=== PATIENT | female | born 1950 | race Caucasian/White ===

== ENCOUNTER → 2017-11-13 10:42 | Outpatient (CLI) | payer MEDICARE, SELFPAY ==
[2017-11-13 12:36] LABS: Absolute Lymphocyte Count 1.68 X10^3/ul (0.83-4.51); Absolute Neutrophil Count 2.9 X10^3/uL (2.0-7.7); Basophil# 0.09 X10^3/uL; Basophil% 1.7 % (0-1); Eosinophil# 0.11 X10^3/uL; Eosinophils% 2.1 % (0-5); Hematocrit 41.3 % (37-47); Hemoglobin 13.3 g/dl (12.0-15.0); Lymphocyte # 1.68 X10^3/ul (4.0); Lymphocyte % 31.5 % (19-41); Mean Corp Hgb Conc 32.2 g/gl (32-36); Mean Corpuscular Hgb 31.8 pg (27.0-32.0); Mean Corpuscular Volume 98.8 fL (81-99); Mean Platelet Vol. 11.1 fl (6.2-12.0); Monocyte# 0.59 X10^3/uL; Neutrophil # 2.87 X10^3/uL (2.7-7.7); Neutrophil % 53.7 % (47-70); Platelet Count 245 K/mm3 (150-450); RBC Distribution Width CV 12.9 % (11.6-14.6); RBC Distribution Width SD 46.6 fl (35.1-43.9); Red Blood Count 4.18 M/mm3 (4.2-5.4); White Blood Count 5.3 K/mm3 (4.4-11.0)
[2017-11-13 12:44] LABS: POSITIVE COUNT NO; POSITIVE DIFFERENTIAL NO; POSITIVE MORPHOLOGY NO
[2017-11-13 12:51] LABS: Vitamin D,25 Hydroxy 15.8 ng/mL (29.95-100.01)
[2017-11-13 12:54] LABS: ALB/GLOB Ratio 1.1 RATIO (0.9-2.4); AST(SGOT) 14 U/L (15-37); Alanine Aminotransfer ALT/SGPT 24 U/L (13-56); Albumin, Serum 3.6 g/dL (3.2-5.0); Alkaline Phosphatase 57 U/L (45-117); Anion Gap 8 (5-15); BUN 18 mg/dL (7-18); BUN/Creat Ratio 23.1 RATIO (10-20); Calcium,Total 8.4 mg/dL (8.5-10.1); Chloride 108 mmol/L (98-107); Creatinine, Serum 0.78 mg/dL (0.55-1.02); EST Glomerular Filtration Rate 79 mL/min (>60); Est Glom Filt Rate - Afr Amer 96 mL/min (>60); Globulin 3.3 g/dL (2.2-4.2); Glucose 78 mg/dL (74-106); Potassium 4.6 mmol/L (3.5-5.1); Protein, Total 6.9 g/dL (6.4-8.2); Sodium Level 143 mmol/L (136-145); Thyroid Stim Hormone (TSH) 2.72 uIU/mL (0.358-3.74)
[2017-11-15 09:32] LABS: Hep C Antibodies <0.1 s/co ratio (0.0-0.9)
== END ==
PROVIDERS: Family Provider Family Medicine Geriatric Medicine; PCP Family Medicine Geriatric Medicine; Visit Provider Family Medicine Geriatric Medicine
DX: R53.83 Other fatigue (principal); E55.9 Vitamin D deficiency, unspecified; Z13.89 Encounter for screening for other disorder
CPT/HCPCS: 36415; 80053; 82306; 84443; 85025; 86803

== ENCOUNTER → 2017-12-24 15:30 | Outpatient (CLI) | payer MEDICARE, SELFPAY ==
--- NOTE | 2017-12-24 15:33 | BD_ITS ---
STUDY: DUAL ENERGY X-RAY ABSORPTIOMETRY / DXA REASON FOR EXAM: Female, 67 years old. The patient is postmenopausal. Loss of height. TECHNIQUE: Bone Mineral Density (BMD) measurements of lumbar spine and bilateral hips were obtained. COMPARISON: None. FINDINGS: Lumbar Spine (L1-L4): g/cm2 (0.668) / T-score (-4.3) / Z-score (-2.7) Findings are suggestive of osteoporosis with a high fracture risk. Left Femur Total: g/cm2 (0.641) / T-score (-2.9) / Z-score (-1.7) Left Femoral Neck: g/cm2 (0.659) / T-score (-2.7) / Z-score (-1.3) Right Femur Total: g/cm2 (0.621) / T-score (-3.1) / Z-score (-1.9) Right Femoral Neck: g/cm2 (0.650) / T-score (-2.8) / Z-score (-1.3) BD/Dexa Bone Density Study IMPRESSION: The patient is considered osteoporotic as outlined below according to World Jim Organization (WHO) criteria with a high fracture risk. Reference Information: The T-score is the number of standard deviations above or below the standard which is normal for young adults at their peak bone mineral density. The World Health Organization (WHO) interprets the T-scores as follows: Above -1 Normal bone density Between -1 and -2.5 Osteopenia Equal to / or below -2.5 Osteoporosis As a practical clinical guideline, osteopenia may be graded as follows: Mild -1 through -1.5 Moderate -1.6 through -2.0 Severe -2.1 through -2.4 The Z-score is the number of standard deviations above or below age-matched controls. A Z-score of less than -1.5 would be considered abnormal. References: 1. NIH Osteoporosis and Related Bone Diseases http://www.osteo.org 2. International Society for Clinical Densitometry http://www.iscd.org 3. National Osteoporosis Foundation http://www.nof.org Electronically Signed: Alejandro Christensen MD at 15:29 EST Tel [phone], Service support ,
--- NOTE | 2017-12-24 15:33 | BI_ITS ---
MAMMOGRAPHY - BILATERAL SCREENING REASON FOR EXAM: Female, 67 years old. Routine annual screening examination. PERTINENT HISTORY: Aunt with breast cancer. History of prior bilateral breast reduction. TECHNIQUE: Digital bilateral breast angelina (3D mammographic acquisition) in the CC and MLO projections. 2-D mediolateral oblique (MLO) and craniocaudad (CC) views of both breasts were obtained. CAD: Full Field Digital Mammography with Computer Added Detection was performed. COMPARISON: Comparison is made with prior examination dated October 22, 2013. FINDINGS: Breast Composition: There are scattered areas of fibroglandular density. There are no dominant masses or suspicious calcifications. No other significant abnormalities are identified. There has been no significant change since the prior study. BI/SCREENING MAMM (CAD), BILAT IMPRESSION: Stable bilateral screening mammogram. Yearly follow-up mammogram recommended. (A) ASSESSMENT CATEGORY: BIRADS Category 1: Negative. A letter regarding these results will be sent to the patient by the facility within 30 days. Approximately 10% of breast cancers are not detected by mammography. A normal mammogram should not delay biopsy of a clinically suspicious abnormality. [id number] Electronically Signed: Alejandro Christensen MD at 8:02 EST Tel [phone], Service support ,
== END ==
PROVIDERS: Family Provider Family Medicine Geriatric Medicine; PCP Family Medicine Geriatric Medicine; Referring Provider Family Medicine Geriatric Medicine; Visit Provider Family Medicine Geriatric Medicine
DX: Z12.31 Encounter for screening mammogram for malignant neoplasm of breast (principal); M81.0 Age-related osteoporosis without current pathological fracture; Z78.0 Asymptomatic menopausal state
CPT/HCPCS: 77063; 77067; 77080

== ENCOUNTER → 2018-11-17 09:12 | Outpatient (CLI) | payer MEDICARE, SELFPAY ==
[2018-11-17 12:03] LABS: Absolute Lymphocyte Count 2.38 X10^3/uL (0.83-4.51); Absolute Neutrophil Count 3.7 X10^3/uL (2.0-7.7); Basophil# 0.08 X10^3/uL; Basophil% 1.2 % (0-1); Eosinophil# 0.07 X10^3/uL; Hematocrit 43.1 % (37-47); Hemoglobin 14.1 g/dL (12.0-15.0); Lymphocyte # 2.38 X10^3/ul (4.0); Lymphocyte % 35.5 % (19-41); Mean Corp Hgb Conc 32.7 g/dL (32-36); Mean Corpuscular Hgb 32.6 pg (27.0-32.0); Mean Corpuscular Volume 99.5 fL (81-99); Mean Platelet Vol. 12.2 fl (6.2-12.0); Monocyte# 0.51 X10^3/uL; Monocyte% 7.6 % (0-10); NRBC Flagged by Analyzer 0 % (0-5); Neutrophil # 3.65 X10^3/uL (2.7-7.7); Neutrophil % 54.4 % (47-70); Platelet Count 234 K/mm3 (150-450); RBC Distribution Width CV 12.6 % (11.6-14.6); RBC Distribution Width SD 46.5 fl (35.1-43.9); Red Blood Count 4.33 M/mm3 (4.2-5.4); White Blood Count 6.7 K/mm3 (4.4-11.0)
[2018-11-17 12:14] LABS: ALB/GLOB Ratio 1.2 RATIO (0.9-2.4); AST(SGOT) 19 U/L (15-37); Alanine Aminotransfer ALT/SGPT 25 U/L (13-56); Albumin, Serum 3.9 g/dL (3.2-5.0); Alkaline Phosphatase 65 U/L (45-117); Anion Gap 5 (5-15); BUN 21 mg/dL (7-18); BUN/Creat Ratio 20.6 RATIO (10-20); Calcium,Total 8.8 mg/dL (8.5-10.1); Chloride 106 mmol/L (98-107); Creatinine, Serum 1.02 mg/dL (0.55-1.02); EST Glomerular Filtration Rate 58 mL/min (>60); Est Glom Filt Rate - Afr Amer 70 mL/min (>60); Globulin 3.2 g/dL (2.2-4.2); Glucose 99 mg/dL (74-106); Potassium 4.2 mmol/L (3.5-5.1); Protein, Total 7.1 g/dL (6.4-8.2); Sodium Level 141 mmol/L (136-145); Thyroid Stim Hormone (TSH) 4.84 uIU/mL (0.358-3.74)
[2018-11-17 12:15] LABS: Vitamin D,25 Hydroxy 26.4 ng/mL (29.95-100.01)
== END ==
PROVIDERS: Family Provider Family Medicine Geriatric Medicine; PCP Family Medicine Geriatric Medicine; Visit Provider Family Medicine Geriatric Medicine
DX: E55.9 Vitamin D deficiency, unspecified (principal); R53.83 Other fatigue
CPT/HCPCS: 36415; 80053; 82306; 84443; 85025

== ENCOUNTER 2018-12-12 07:24 | Day surgery (SDC) | payer MEDICARE, SELFPAY ==
[2018-12-12] VITALS (8 sets, daily range): BP systolic 91–120; BP diastolic 59–69; PULSE 43–59; RESP 16; TEMP 36.3–37.2; O2SAT 98–100; BMI 22.0
[2018-12-12] MEDS: Lactated Ringers 1,000 ML 100 ML IV (08:11)
--- NOTE | 2018-12-12 08:41 | PCM.HP.STD ---
Problem List (1) Screening for intestinal cancer Status: Acute History of Present Illness Date of Admission: 12/12/18 The patient is a 68 year old F who presents for screening colonoscopy today. She presents via our open access program. She has never had a previous colonoscopy. She enjoys good health. She has no specific complaints today. Past Medical History Allergies No Known Allergies Allergy (Verified 12/10/18 13:53) Home Medications: Ambulatory Orders Medication Instructions Recorded Eszopiclone [Lunesta] 3 mg PO QHS 07/22/14 Oxycodone HCl/Acetaminophen 1 - 2 tablet PO Q4H PRN PRN #30 07/23/14 [Percocet 5/325] tablet Levothyroxine [Synthroid] 25 mcg PO DAILY 12/10/18 Smoking Status: Current every day smoker Review of Systems HEENT: Denies: Difficulty Swallowing Cardiovascular: Denies: Chest Pain Respiratory: Denies: Cough Gastrointestinal: Denies: Abdominal Pain, Hematochezia Endocrine: Denies: Change in Body Habitus VTE Information - Inpt Only VTE Present on Admission: No Patient Problems: Active and Suspected Problems Screening for intestinal cancer (Acute) - Physical Exam Vitals/I&O's: Vital Signs Temp Pulse Resp BP Pulse Ox 98.9 F 59 L 16 116/69 100 12/12/18 07:47 12/12/18 07:47 12/12/18 07:47 12/12/18 07:47 12/12/18 07:47 Oxygen Delivery Method Room Air Weight: 138 lb 7.205 oz Body Mass Index (BMI) 22.0 General: Alert, Oriented x3, Cooperative, No apparent distress Oral: Moist Mucosa Neck: Supple Lungs: Clear to auscultation, Normal air movement Cardiovascular: Regular rate, Regular Rhythm Abdomen: Bowel Sounds Present, Soft, Non Tender Extremities: No Calf Tenderness Current Medications Lactated Ringer's () 1,000 mls @ 100 mls/hr IV .Q10H RADHA Last Admin: 12/12/18 08:11 Dose: 100 mls/hr Documented by: Assessment/Plan All Active Problems Screening for intestinal cancer (Acute) I plan to proceed with a screening colonoscopy with possible biopsy or polypectomy is indicated. She is aware of the technique, benefits, risks, alternatives. She has had an opportunity to ask and have questions answered. As noted she presents via our open access program today. Gray Arevalo M.D., F.A.C.S.
--- NOTE | 2018-12-12 09:20 | OP.ENDO_ITS ---
12/12/2018 Franklin Rudd MD [address] [place] [address] Re : Colonoscopy procedure for Radha Aj Dear Dr. Rudd This procedure was performed on Wednesday, December 12, 2018. My impressions and recommendations are as follows: Impressions : - Preparation of the colon was fair. - Hemorrhoids found on perianal exam. - Diverticulosis in the sigmoid colon and in the descending colon. - Tortuous colon. - The examination was otherwise normal. - No specimens collected. Recommendations : - Discharge patient to home. - Resume previous diet. - Continue present medications. - Repeat colonoscopy in 10 years for screening purposes. Liguid stool throughout the colon. 800cc aspirated. Some areas of colon could not be completely visualized b/o solid/particle component. What was visualized was normal except for diveticular disease. My findings are described in the full procedure note, which is enclosed. If I can be of further assistance, please feel free to contact me at Doctor phone number(s): Work: . Sincerely, Gray Arevalo MD 12/12/2018 9:20:17 AM This report has been signed electronically.
== END 2018-12-12 10:21 | disposition home or self-care (01) ==
LOC: EN 07:24 → AC 07:25
PROVIDERS: Family Provider Family Medicine Geriatric Medicine; PCP Family Medicine Geriatric Medicine; Referring Provider Family Medicine Geriatric Medicine; Visit Provider Surgery
PROC: 0DJD8ZZ Inspection of Lower Intestinal Tract, Via Natural or Artificial Opening Endoscopic (ICD-10-PCS; CPT 45378; principal; 2018-12-12 08:25)
DX: Z12.11 Encounter for screening for malignant neoplasm of colon (principal); K57.30 Diverticulosis of large intestine without perforation or abscess without bleeding; K64.9 Unspecified hemorrhoids; F17.200 Nicotine dependence, unspecified, uncomplicated; Z79.899 Other long term (current) drug therapy
CPT/HCPCS: G0121; 99152; 99153; J7120

== ENCOUNTER → 2018-12-29 09:26 | Outpatient (CLI) | payer MEDICARE, SELFPAY ==
[2018-12-12 07:47] VITALS: BMI 22.0
[2018-12-29 10:30] LABS: Thyroid Stim Hormone (TSH) 3.37 uIU/mL (0.358-3.74)
== END ==
LOC: LAB.FUTURE 09:31 → LAB 09:32
PROVIDERS: Family Provider Family Medicine Geriatric Medicine; PCP Family Medicine Geriatric Medicine; Referring Provider Family Medicine Geriatric Medicine; Visit Provider Family Medicine Geriatric Medicine
DX: E03.9 Hypothyroidism, unspecified (principal)
CPT/HCPCS: 36415; 84443

== ENCOUNTER → 2019-11-19 09:01 | Outpatient (CLI) | payer MEDICARE, SELFPAY ==
[2018-12-12 07:47] VITALS: BMI 22.0
[2019-11-19 12:49] LABS: Absolute Lymphocyte Count 2.56 X10^3/uL (0.83-4.51); Absolute Neutrophil Count 3.9 X10^3/uL (2.0-7.7); Basophil# 0.08 X10^3/uL; Basophil% 1.1 % (0-1); Eosinophil# 0.06 X10^3/uL; Eosinophils% 0.9 % (0-5); Hematocrit 41.6 % (37-47); Hemoglobin 13.5 g/dL (12.0-15.0); Lymphocyte # 2.56 X10^3/ul (4.0); Lymphocyte % 36.4 % (19-41); Mean Corp Hgb Conc 32.5 g/dL (32-36); Mean Corpuscular Volume 101.7 fL (81-99); Mean Platelet Vol. 11.9 fl (6.2-12.0); Monocyte# 0.41 X10^3/uL; Monocyte% 5.8 % (0-10); NRBC Flagged by Analyzer 0 % (0-5); Neutrophil # 3.91 X10^3/uL (2.7-7.7); Neutrophil % 55.5 % (47-70); Platelet Count 237 K/mm3 (150-450); RBC Distribution Width CV 12.4 % (11.6-14.6); Red Blood Count 4.09 M/mm3 (4.2-5.4)
[2019-11-19 13:03] LABS: Vitamin D,25 Hydroxy 62.4 ng/mL
[2019-11-19 13:18] LABS: ALB/GLOB Ratio 1.1 RATIO (0.9-2.4); AST(SGOT) 28 U/L (15-37); Alanine Aminotransfer ALT/SGPT 41 U/L (13-56); Albumin, Serum 3.7 g/dL (3.2-5.0); Alkaline Phosphatase 58 U/L (45-117); Anion Gap 4 (5-15); BUN 24 mg/dL (7-18); BUN/Creat Ratio 22.6 RATIO (10-20); Calcium,Total 8.9 mg/dL (8.5-10.1); Chloride 106 mmol/L (98-107); Creatinine, Serum 1.06 mg/dL (0.55-1.02); EST Glomerular Filtration Rate 55 mL/min (>60); Est Glom Filt Rate - Afr Amer 67 mL/min (>60); Globulin 3.3 g/dL (2.2-4.2); Glucose 95 mg/dL (74-106); Potassium 4.2 mmol/L (3.5-5.1); Sodium Level 140 mmol/L (136-145); Thyroid Stim Hormone (TSH) 4.11 uIU/mL (0.358-3.74)
== END ==
PROVIDERS: PCP Family Medicine Geriatric Medicine; Visit Provider Family Medicine Geriatric Medicine
DX: E55.9 Vitamin D deficiency, unspecified (principal); R53.83 Other fatigue
CPT/HCPCS: 36415; 80053; 82306; 84443; 85025

== ENCOUNTER → 2020-03-04 11:15 | Outpatient (CLI) | payer MEDICARE, SELFPAY ==
[2018-12-12 07:47] VITALS: BMI 22.0
[2020-03-04 12:33] LABS: Thyroid Stim Hormone (TSH) 1.46 uIU/mL (0.358-3.74)
== END ==
PROVIDERS: PCP Family Medicine Geriatric Medicine; Referring Provider Family Medicine Geriatric Medicine; Visit Provider Family Medicine Geriatric Medicine
DX: E03.9 Hypothyroidism, unspecified (principal)
CPT/HCPCS: 36415; 84443

== ENCOUNTER → 2020-11-21 10:20 | Outpatient (CLI) | payer MEDICARE, SELFPAY ==
[2020-11-21 12:07] LABS: Absolute Lymphocyte Count 1.81 X10^3/uL (0.83-4.51); Absolute Neutrophil Count 2.2 X10^3/uL (2.0-7.7); Basophil% 2.1 % (0-1); Eosinophil# 0.08 X10^3/uL; Eosinophils% 1.7 % (0-5); Hematocrit 42.4 % (37-47); Lymphocyte # 1.81 X10^3/ul (0.83-4.51); Lymphocyte % 38.5 % (19-41); Mean Corpuscular Hgb 32.6 pg (27.0-32.0); Mean Corpuscular Volume 98.8 fL (81-99); Mean Platelet Vol. 11.6 fl (6.2-12.0); Monocyte# 0.43 X10^3/uL; Monocyte% 9.1 % (0-10); NRBC Flagged by Analyzer 0 % (0-5); Neutrophil # 2.24 X10^3/uL (2.7-7.7); Neutrophil % 47.7 % (47-70); Platelet Count 247 K/mm3 (150-450); RBC Distribution Width CV 12.3 % (11.6-14.6); RBC Distribution Width SD 45.1 fl (35.1-43.9); Red Blood Count 4.29 M/mm3 (4.2-5.4); White Blood Count 4.7 K/mm3 (4.4-11.0)
[2020-11-21 12:28] LABS: ALB/GLOB Ratio 0.9 RATIO (0.9-2.4); AST(SGOT) 19 U/L (15-37); Alanine Aminotransfer ALT/SGPT 26 U/L (13-56); Albumin, Serum 3.4 g/dL (3.2-5.0); Alkaline Phosphatase 67 U/L (45-117); Anion Gap 6 (5-15); BUN 21 mg/dL (7-18); Calcium,Total 8.4 mg/dL (8.5-10.1); Chloride 107 mmol/L (98-107); Creatinine, Serum 0.84 mg/dL (0.55-1.02); EST Glomerular Filtration Rate 72 mL/min (>60); Est Glom Filt Rate - Afr Amer 87 mL/min (>60); Globulin 3.6 g/dL (2.2-4.2); Glucose 96 mg/dL (74-106); Potassium 4.4 mmol/L (3.5-5.1); Sodium Level 141 mmol/L (136-145); Thyroid Stim Hormone (TSH) 1.83 uIU/mL (0.358-3.74)
== END ==
PROVIDERS: PCP Family Medicine Geriatric Medicine; Visit Provider Family Medicine Geriatric Medicine
DX: R53.83 Other fatigue (principal); E55.9 Vitamin D deficiency, unspecified
CPT/HCPCS: 36415; 80053; 82306; 84443; 85025

== ENCOUNTER → 2021-11-27 | Outpatient (CLI) | payer MEDICARE, SELFPAY ==
[2021-11-27 12:25] LABS: Absolute Lymphocyte Count 1.71 X10^3/uL (0.83-4.51); Basophil# 0.09 X10^3/uL; Basophil% 1.7 % (0-1); Eosinophil# 0.11 X10^3/uL; Hematocrit 44.1 % (37-47); Hemoglobin 14.5 g/dL (12.0-15.0); Lymphocyte # 1.71 X10^3/ul (0.83-4.51); Lymphocyte % 31.6 % (19-41); Mean Corp Hgb Conc 32.9 g/dL (32-36); Mean Corpuscular Hgb 31.1 pg (27.0-32.0); Mean Corpuscular Volume 94.6 fL (81-99); Mean Platelet Vol. 11.3 fl (6.2-12.0); Monocyte# 0.53 X10^3/uL; Monocyte% 9.8 % (0-10); NRBC Flagged by Analyzer 0 % (0-5); Neutrophil # 2.95 X10^3/uL (2.7-7.7); Neutrophil % 54.5 % (47-70); Platelet Count 282 K/mm3 (150-450); RBC Distribution Width CV 12.7 % (11.6-14.6); RBC Distribution Width SD 44.2 fl (35.1-43.9); Red Blood Count 4.66 M/mm3 (4.2-5.4); White Blood Count 5.4 K/mm3 (4.4-11.0)
[2021-11-27 12:42] LABS: Vitamin D,25 Hydroxy 42.6 ng/mL
[2021-11-27 12:54] LABS: ALB/GLOB Ratio 0.9 RATIO (0.9-2.4); AST(SGOT) 16 U/L (15-37); Alanine Aminotransfer ALT/SGPT 26 U/L (13-56); Albumin, Serum 3.5 g/dL (3.2-5.0); Alkaline Phosphatase 85 U/L (45-117); Anion Gap 6 (5-15); BUN 21 mg/dL (7-18); BUN/Creat Ratio 22.8 RATIO (10-20); Calcium,Total 8.7 mg/dL (8.5-10.1); Chloride 107 mmol/L (98-107); Creatinine, Serum 0.92 mg/dL (0.55-1.02); EST Glomerular Filtration Rate 64 mL/min (>60); Est Glom Filt Rate - Afr Amer 78 mL/min (>60); Globulin 3.9 g/dL (2.2-4.2); Glucose 103 mg/dL (74-106); Potassium 4.5 mmol/L (3.5-5.1); Protein, Total 7.4 g/dL (6.4-8.2); Sodium Level 140 mmol/L (136-145); Thyroid Stim Hormone (TSH) 1.75 uIU/mL (0.358-3.74)
== END | disposition home or self-care (01) ==
LOC: POLAB3 09:53
PROVIDERS: PCP Family Medicine Geriatric Medicine; Visit Provider Family Medicine Geriatric Medicine
DX: E55.9 Vitamin D deficiency, unspecified (principal); R53.83 Other fatigue
CPT/HCPCS: 36415; 80053; 82306; 84443; 85025

== ENCOUNTER → 2021-12-01 | Outpatient (CLI) | payer MEDICARE, SELFPAY ==
--- NOTE | 2021-12-01 14:20 | PFTCOMP ---
COMPLETE PULMONARY FUNCTION TEST INTERPRETATION Brief HPI: Patient is a 71-year-old female, currently under the care of Dr. Rudd, who presents to [facility] for complete pulmonary function tests secondary to diagnosis of dyspnea. Respiratory therapist reports good effort and reproducible results. Interpretation: Forced expiration spirometry shows a mild large airways obstructive ventilatory defect with an FEV1 of 80% predicted. There is a significant bronchodilator response in FEV1 by strict ATS criteria. Spirograms are of good quality and plateau slowly, indicating slowly emptying areas of the lungs. The respiratory flow volume loop shows decreased expiratory flow rates at all lung volumes consistent with airway obstruction. Lung volumes by body plethysmography show an elevated total lung capacity at 6.47 L, 119% predicted. All other lung volumes are increased symmetrically. Diffusion capacity by carbon monoxide is normal at 80% predicted. The airway resistance is normal. No previous pulmonary function tests were available for review. Impression: Partially reversible mild large airways obstructive ventilatory defect in a pattern consistent with COPD/asthma overlap syndrome.
== END | disposition home or self-care (01) ==
LOC: PSN 09:29
PROVIDERS: PCP Family Medicine Geriatric Medicine; Referring Provider Family Medicine Geriatric Medicine; Visit Provider Family Medicine Geriatric Medicine
DX: R06.02 Shortness of breath (principal)
CPT/HCPCS: 94060; 94726; 94729

== ENCOUNTER → 2022-06-25 | Outpatient (CLI) | payer MEDICARE, SELFPAY ==
[2022-06-25 08:21] LABS: Hemoglobin A1c 5.2 % (3.8-5.6)
[2022-06-25 08:29] LABS: ALB/GLOB Ratio 1.1 RATIO (0.9-2.4); AST(SGOT) 14 U/L (15-37); Alanine Aminotransfer ALT/SGPT 19 U/L (13-56); Albumin, Serum 3.3 g/dL (3.2-5.0); Alkaline Phosphatase 70 U/L (45-117); Anion Gap 3 (5-15); BUN 20 mg/dL (7-18); BUN/Creat Ratio 26.8 RATIO (10-20); Calcium,Total 8.5 mg/dL (8.5-10.1); Chloride 112 mmol/L (98-107); Cholesterol 189 mg/dL (200); Creatinine, Serum 0.75 mg/dL (0.55-1.02); EST Glomerular Filtration Rate 82 mL/min (>60); Est Glom Filt Rate - Afr Amer 99 mL/min (>60); Globulin 3.1 g/dL (2.2-4.2); Glucose 100 mg/dL (74-106); High Density Lipoprotein 68 mg/dL; Potassium 4.6 mmol/L (3.5-5.1); Protein, Total 6.4 g/dL (6.4-8.2); Sodium Level 142 mmol/L (136-145); T4 Free Direct 1.09 ng/dL (0.76-1.46); Triglycerides 51 mg/dL; Very Low Density Lipoprotein 10 mg/dL (5-40)
== END | disposition home or self-care (01) ==
LOC: LAB 07:16
DX: Z00.00 Encounter for general adult medical examination without abnormal findings (principal); E03.9 Hypothyroidism, unspecified; M81.0 Age-related osteoporosis without current pathological fracture; F51.01 Primary insomnia; Z79.899 Other long term (current) drug therapy
CPT/HCPCS: 36415; 80053; 80061; 82306; 83036; 84439

== ENCOUNTER 2022-06-28 09:26 | Day surgery (SDC) | payer MEDICARE, SELFPAY ==
--- NOTE | 2022-06-25 07:02 | EKG12_ITS ---
Test Reason : PRE OP Blood Pressure : / mmHG Vent. Rate : 062 BPM Atrial Rate : 062 BPM P-R Int : 144 ms QRS Dur : 076 ms QT Int : 414 ms P-R-T Axes : 058 073 074 degrees QTc Int : 420 ms Normal sinus rhythm Normal ECG Confirmed by SAM COCHRAN, MILEY ([id number]), manuscript editor SUSIE MORGAN ([id number]) on 06/25/2022 2:48:17 PM Referred By: Bria Vargas Confirmed By:ELIDA VARGAS MD
[2022-06-25 07:58] LABS: Hematocrit 42.2 % (37-47); Hemoglobin 13.7 g/dL (12.0-15.0); Mean Corp Hgb Conc 32.5 g/dL (32-36); Mean Corpuscular Hgb 32.3 pg (27.0-32.0); Mean Corpuscular Volume 99.5 fL (81-99); Mean Platelet Vol. 10.9 fl (6.2-12.0); Platelet Count 267 K/mm3 (150-450); RBC Distribution Width CV 13.2 % (11.6-14.6); RBC Distribution Width SD 48.5 fl (35.1-43.9); Red Blood Count 4.24 M/mm3 (4.2-5.4); White Blood Count 5.3 K/mm3 (4.4-11.0)
[2022-06-28 09:43] VITALS: BP 131/77; PULSE 66; RESP 16; TEMP 37.3; O2SAT 98; BMI 28.5
[2022-06-28] MEDS: Lactated Ringers 1,000 ML 15 ML IV (09:59)
--- NOTE | 2022-06-28 10:22 | DCINST_ITS ---
Discharge Instructions Diet Discharge Diet: No restrictions Activity Discharge Activity: May Shower May resume sexual activity in: 4 weeks Lifting Restrictions: No lifting over 5 pounds for 4 weeks. No strenuous activity, no exercise. Additional Activity Instructions:: No tub bathing, no hot tubs, no swimming, no sexual activity. Dressing / Incision Call your doctor if your incision/area has: Continuous Slow Oozing, Sudden Increased Bleeding, Increased Pain/ Swelling, Increased Redness, Foul Smelling Discharge and Swelling at the incision site Call your doctor if you observe: Fever of 101 or Higher, Inability to urinate and Inability to have a bowel movement Follow Up Care Please Follow Up With: Bria Vargas MD When: Call the office for appointment Test Results: Test results from this visit will be discussed in further detail at your follow- up appointment, if applicable. Discharge Plan Admission Attending Provider: Bria Vargas Primary Care Provider: Rico Matias Discharge Orders/Prescriptions Prescriptions: New oxycodone-acetaminophen [Percocet] 5-325 mg tablet 1 tab PO Q8H PRN (Reason: pain) 3 Days Qty: 10 0RF cephalexin [cephalexin] 500 mg capsule 500 mg PO Q12 3 Days Qty: 6 0RF Continued eszopiclone [Lunesta] 3 MG tablet 3 mg PO QHS Label Comments: insomnia levothyroxine 25 MCG tablet 25 mcg PO QHS albuterol sulfate 90 mcg/actuation Hfa Aerosol Inhaler 90 mcg INHALATION PRN PRN (Reason: ASTHMA) Trelegy Ellipta 200-62.5-25 mcg Blister With Device 1 inh INHALATION DAILY Referrals / Follow Up: Rico Matias DO [Primary Care Provider] - Disposition Disposition (needs filled in before D/C Order can be placed): Home, Self Care
--- NOTE | 2022-06-28 10:26 | PCM.OPRPT ---
Report of Operation Date of Procedure: 06/28/22 Pre-Operative Diagnosis: Stress urinary incontinence Post-Operative Diagnosis: Same Surgery/Procedure Performed:: Mid urethral sling insertion, cystoscopy Surgeon: Bria Vargas Type of Anesthesia: General Description of Procedure: The patient is a 71-year-old female with stress urinary incontinence who presented to the office for evaluation and management. After undergoing testing, she desired to proceed with surgical intervention. Informed consent was obtained. The patient was taken to the operating room and placed on the operating room table. Anesthesia monitored the head, neck, airway, IV access and vital signs throughout the case. Once anesthesia was administered, the patient was positioned in dorsal lithotomy with Trendelenburg, and she was prepped and draped in usual sterile fashion. A 16 Vietnamese Valverde catheter was inserted to straight drain and the bladder was emptied. The mid urethra was isolated and injected submucosally with lidocaine with epinephrine. A midline vertical incision was then made over the mid urethra approximately 1.5 cm in length. Sharp and blunt dissection was performed on both sides of the urethra with care being taken to avoid entrance into the urethra or the vaginal mucosa. After dissection was completed, the sling was inserted into the transobturator complexes bilaterally using the provided trocars. The mesh lay flat against the urethra and was positioned using the tensioning suture. After positioning, the suture was cut and the incision was closed using running interlocking 2-0 Vicryl. The Valverde catheter was then removed and a cystourethroscopy was performed with insertion of the cystoscope through the urethra under direct visualization into the urinary bladder. There is no evidence of injury to the urinary bladder or the urethra. There were no masses, areas of erythema or foreign objects identified within the urethra or the bladder. The patient's bladder was left with a small amount of fluid, the cystoscope was removed and the patient was awakened and taken to the recovery room in good condition. There were no complications during this procedure. Grafts/Implants Used: Altis mid urethral sling Complications None Admit VTE Documentation VTE Present on Admission: Yes VTE Mechan Device Prophylaxis: SCD's VTE Pharm Prophylaxis ordered?: No Reason prophylaxis not ordered:: Treatment Not Indicated
[2022-06-28] MEDS: Cefazolin 2 GM in 0.9% Normal Saline 100 ML IV (11:04)
[2022-06-28] MEDS: Lidocaine 1% /Epi 1:100 (20ml) 20 ML Vial (11:05)
[2022-06-28 11:38] VITALS: BP 116/75; BP 131/77; PULSE 70; RESP 18; TEMP 36.7; O2SAT 97
[2022-06-28 11:45] VITALS: BP 115/74; BP 131/77; PULSE 60; RESP 16; O2SAT 98
[2022-06-28 11:53] VITALS: BP 113/71; BP 131/77; PULSE 57; RESP 18; TEMP 37; O2SAT 97
[2022-06-28 13:38] VITALS: BP 131/77; BP 155/67; PULSE 60; RESP 18; TEMP 36.6; O2SAT 100
== END 2022-06-28 13:58 | disposition home or self-care (01) ==
LOC: SDC 09:27 → AC 09:28
PROVIDERS: Anesthesiology; Referring Provider Urology; Visit Provider Urology
PROC: 0TJB8ZZ Inspection of Bladder, Via Natural or Artificial Opening Endoscopic (ICD-10-PCS; CPT 57288; principal; 2022-06-28 10:55)
DX: N39.3 Stress incontinence (female) (male) (principal); J44.9 Chronic obstructive pulmonary disease, unspecified; F17.200 Nicotine dependence, unspecified, uncomplicated; E07.9 Disorder of thyroid, unspecified; Z79.899 Other long term (current) drug therapy
CPT/HCPCS: 57288; 00860; 36415; 84443; 85027; 93005; J7120; J2405

== ENCOUNTER 2022-10-25 06:52 | Day surgery (SDC) | payer MEDICARE, SELFPAY ==
[2022-10-25] VITALS (7 sets, daily range): BP systolic 93–127; BP diastolic 63–72; PULSE 56–75; RESP 16; TEMP 36.7–37; O2SAT 94–100; BMI 28.3
[2022-10-25] MEDS: Lactated Ringers 1,000 ML 15 ML IV (07:19)
--- NOTE | 2022-10-25 08:20 | DCINST_ITS ---
Discharge Instructions Diet Discharge Diet: No restrictions Activity Discharge Activity: Return to Normal Activity and May Shower May resume sexual activity in: 1 week Dressing / Incision Call your doctor if you observe: Fever of 101 or Higher, Inability to urinate and Inability to have a bowel movement Follow Up Care Please Follow Up With: Bria Vargas MD When: The office will call the patient to make arrangements for follow-up Test Results: Test results from this visit will be discussed in further detail at your follow- up appointment, if applicable. Discharge Plan Admission Attending Provider: Bria Vargas Primary Care Provider: Rico Matias Discharge Orders/Prescriptions Prescriptions: New cephalexin [cephalexin] 500 mg capsule 500 mg PO Q12 3 Days Qty: 6 0RF Continued eszopiclone [Lunesta] 3 MG tablet 3 mg PO QHS Patient Comments: insomnia levothyroxine 25 MCG tablet 25 mcg PO QHS albuterol sulfate 90 mcg/actuation Hfa Aerosol Inhaler 90 mcg INHALATION PRN PRN (Reason: ASTHMA) Trelegy Ellipta 200-62.5-25 mcg Blister With Device 1 inh INHALATION DAILY oxycodone-acetaminophen [Percocet] 5-325 mg tablet 1 tab PO Q8H PRN (Reason: pain) 3 Days Qty: 10 0RF Referrals / Follow Up: Rioc Matias DO [Primary Care Provider] - Disposition Disposition (needs filled in before D/C Order can be placed): Home, Self Care
[2022-10-25] MEDS: Cefazolin 2 GM in 0.9% Normal Saline 100 ML IV (08:30)
--- NOTE | 2022-10-25 09:27 | PCM.OPRPT ---
Report of Operation Date of Procedure: 10/25/22 Pre-Operative Diagnosis: Intrinsic sphincter deficiency Post-Operative Diagnosis: Same Surgery/Procedure Performed:: Cystoscopy, Bulkamid injection Surgeon: Bria Vargas Type of Anesthesia: MAC Description of Procedure: The patient is a 71-year-old female who has continued to leak status post mid urethral sling insertion and now presents for Bulkamid. Informed consent was obtained. The patient was taken to the operating room and placed on the operating room table. Anesthesia monitored the head, neck, airway, IV access and vital signs throughout the case. Once anesthesia was appropriate ministered, the patient was placed into dorsolithotomy position was prepped and draped in usual sterile fashion. The Bulkamid scope was utilized and entered in through the urethra under direct visualization to the area of the bladder neck where the needle was extended to 2 cm at the bladder neck. The needle was then adjusted to the 7 o'clock position and the scope was pulled back approximately 2 cm. The needle was inserted bevel side towards the lumen into the submucosa where the Bulkamid product was injected. The patient was uncomfortable and at approximately 3 mm of injection, the pillow popped and the needle was retracted. I then moved onto the 5 o'clock position followed by the 2 o'clock position. The patient continued to be uncomfortable and moving throughout the procedure. When she was given more anesthetic, she began to become apneic. This was a [id number] throughout the procedure. The pillow at the 10 o'clock position was then developed as well. At this time one of the needles during the injection became unattached from the syringe and the product was unable to be utilized. A second Bulkamid product was then opened. A new pillow was formed at the 6 o'clock position in the 12 o'clock position. At this time there was decent coaptation with the just a very small space centrally. The scope was removed and the patient was awakened and taken to the recovery room in good condition. While the case was difficult, there were no complications. Complications None Admit VTE Documentation VTE Present on Admission: Yes VTE Mechan Device Prophylaxis: SCD's VTE Pharm Prophylaxis ordered?: No Reason prophylaxis not ordered:: Treatment Not Indicated
== END 2022-10-25 10:09 | disposition home or self-care (01) ==
LOC: SDC 06:52 → AC 06:53
PROVIDERS: Referring Provider Urology; Visit Provider Urology
PROC: 3E0K8GC Introduction of Other Therapeutic Substance into Genitourinary Tract, Via Natural or Artificial Opening Endoscopic (ICD-10-PCS; CPT 52287; principal; 2022-10-25 08:15)
DX: N36.42 Intrinsic sphincter deficiency (ISD) (principal); J45.909 Unspecified asthma, uncomplicated; F17.200 Nicotine dependence, unspecified, uncomplicated; N93.9 Abnormal uterine and vaginal bleeding, unspecified; K59.00 Constipation, unspecified; N95.2 Postmenopausal atrophic vaginitis; E07.9 Disorder of thyroid, unspecified; Z79.899 Other long term (current) drug therapy
CPT/HCPCS: 51715; L8606; 00910; J7120; J2405